=== PATIENT | female | born 1950 | race Caucasian/White ===

== ENCOUNTER → 2017-04-02 | Outpatient (CLI) | payer MEDICARE, BC ==
--- NOTE | 2017-04-02 16:28 | BD ---
EXAMINATION TYPE: MG DEXA axial skeleton. DATE OF EXAM: 04/02/2017 COMPARISON: 05/11/2014 CLINICAL HISTORY: 66 year-old female age related osteoporosis Height: 5 FT 3 1/2 IN Weight: FRAX RISK QUESTIONS: Alcohol (3 or more units per day): NO Family History (Parent hip fracture): NO Glucocorticoids (More than 3mos): NO (Ex: prednisone, prednisolone, methylprednisolone, dexamethasone, and hydrocortisone). History of Fracture in Adulthood: NO Secondary Osteoporosis: 1. Type 1 Diabetes: NO 2. Hyperthyroidism: NO 3. Menopause before 45: PART ST AGE 28 4. Malnutrition: NO 5. Chronic liver disease: NO Rheumatoid Arthritis: NO Current Tobacco Use: NO RISK FACTORS HISTORY OF: Surgery to Spine/Hip(right/left)/Wrist (right/left): CERV FUSION When: 20 YEARS AGO Active: YES Postmenopausal woman: PART AGE 28 MEDICATIONS: Additional Medications: LOSARTIN, CALCIUM,VIT D , LIPITOR, Additional History: EXAM MEASUREMENTS: Bone mineral densitometry was performed using the [employer] System. Bone mineral density as measured about the Lumbar spine is: ----- L1-L4(G/cm2): 1.144 T Score Values are as follows: ----- L2: -1.8 ----- L3: 0.8 ----- L4: 1.2 ----- L1-L4: -0.3 Bone mineral density has: DECREASED -1.5 % since study of: 2014 Bone mineral density about the R hip (g/cm2): 0.784 Bone mineral density about the L hip (g/cm2): 0.773 T Score values are as follows: -----R Neck: -1.8 -----L Neck: -1.9 -----R Total: -1.5 -----L Total: -1.8 Bone mineral density has: DECREASED -7.8 % since study of: 2014 IMPRESSION: Osteopenia (T Score between -2.5 and -1 as noted by T score values There is slightly increased risk of fracture and the patient may be considered for treatment. Re-Screen 2-5 years. NOTE: T-SCORE=SD OF THE YOUNG ADULT MEAN.
== END | disposition home or self-care (01) ==
LOC: RADBDWWP 10:01
PROVIDERS: ATTEND Internal Medicine Geriatric Medicine
DX: M81.0 Age-related osteoporosis without current pathological fracture (principal)
CPT/HCPCS: 77080

== ENCOUNTER → 2017-04-02 | Outpatient (CLI) | payer MEDICARE, BC ==
--- NOTE | 2017-04-03 10:05 | MM ---
Reason for exam: screening (asymptomatic). Last mammogram was performed 1 year and 5 months ago. History: Family history of breast cancer in mother at age 70. Physical Findings: A clinical breast exam by your physician is recommended on an annual basis and results should be correlated with mammographic findings. MG 3D Screening Mammo W/Cad Bilateral CC and MLO view(s) were taken. Prior study comparison: November 13, 2015, bilateral MG 3d screening mammo w/cad. May 11, 2014, bilateral MG screening mammo w CAD. The breast tissue is heterogeneously dense. This may lower the sensitivity of mammography. Finding: There are typically benign diffuse/scattered calcifications in both breasts. No suspicious abnormality. Left internal mammary lymph node noted. No significant changes in finding since November 13, 2015 and May 11, 2014. ASSESSMENT: Benign, BI-RAD 2 RECOMMENDATION: Routine screening mammogram of both breasts in 1 year.
== END | disposition home or self-care (01) ==
LOC: RADMAMWWP 10:04
PROVIDERS: ATTEND Obstetrics & Gynecology
DX: Z12.31 Encounter for screening mammogram for malignant neoplasm of breast (principal)
CPT/HCPCS: 77063; 77067

== ENCOUNTER → 2017-04-02 | Outpatient (CLI) | payer MEDICARE, BC ==
--- NOTE | 2017-04-02 13:51 | XR ---
EXAMINATION TYPE: XR lumbosacral spine min 4V DATE OF EXAM: 04/02/2017 COMPARISON: NONE HISTORY: 66-year-old female with low back pain TECHNIQUE: 5 views FINDINGS: 5 lumbar type vertebral bodies. No pars interarticularis defect. Hypertrophic facet arthropathy mid t o lower lumbar spine. There is moderate to severe degenerative disc disease at L4-L5 and L5-S1 with e ndplate spondylosis, disc height loss, and vacuum phenomenon. Additional endplate spondylosis T10-T11 . Overall alignment is maintained and vertebral body heights are preserved. IMPRESSION: 1. Hypertrophic facet arthropathy mid to lower lumbar spine. No vertebral compression collapse or mal alignment. 2. Moderate to severe degenerative disc disease L4-L5 and L5-S1.
== END | disposition home or self-care (01) ==
LOC: RADXRMAIN 11:08
PROVIDERS: ATTEND Internal Medicine Geriatric Medicine
DX: M51.37 Other intervertebral disc degeneration, lumbosacral region (principal); M46.96 Unspecified inflammatory spondylopathy, lumbar region; M53.86 Other specified dorsopathies, lumbar region
CPT/HCPCS: 72110; 77080

== ENCOUNTER → 2018-05-14 | Outpatient (CLI) | payer MEDICARE, BC ==
--- NOTE | 2018-05-15 11:17 | MM ---
Reason for exam: screening (asymptomatic). Last mammogram was performed 1 year and 1 month ago. History: Patient is postmenopausal. Family history of breast cancer in mother at age 70. Took hormonal contraceptives for 2 years. Physical Findings: A clinical breast exam by your physician is recommended on an annual basis and results should be correlated with mammographic findings. MG 3D Screening Mammo W/Cad Bilateral CC and MLO view(s) were taken. Prior study comparison: April 02, 2017, bilateral MG 3d screening mammo w/cad. November 13, 2015, bilateral MG 3d screening mammo w/cad. The breast tissue is heterogeneously dense. This may lower the sensitivity of mammography. There are benign appearing round circumscribed multiple left masses similar to prior exams. Benign appearing bilateral calcifications. No suspicious abnormality. No significant changes when compared with prior studies. ASSESSMENT: Benign, BI-RAD 2 RECOMMENDATION: Routine screening mammogram of both breasts in 1 year.
== END ==
LOC: RADMAMWWP 13:52
PROVIDERS: ATTEND Obstetrics & Gynecology
DX: Z12.31 Encounter for screening mammogram for malignant neoplasm of breast (principal)
CPT/HCPCS: 77063; 77067

== ENCOUNTER 2018-10-09 09:19 | Emergency (ER) | payer MEDICARE, BC ==
[2018-10-09 09:27] VITALS: TEMP 97.9
[2018-10-09] MEDS ORDERED: DIPH,PERTUS(ACELL)TETVAC-LF 0.5 ML VIAL IM ONE (09:55)
[2018-10-09] MEDS ORDERED: LIDOCAINE 1%-EPI 1:100,000 20 ML VIAL SQ STA (09:58)
--- NOTE | 2018-10-09 10:09 | CT ---
EXAMINATION TYPE: CT brain marcio smith DATE OF EXAM: 10/09/2018 COMPARISON: NONE HISTORY: Fall, Head Injury. Head and neck pain. CT DLP: 1398.1 mGycm. Automated Exposure Control for Dose Reduction was Utilized. TECHNIQUE: CT scan of the head and cervical spine are performed without contrast. FINDINGS: There is a left scalp hematoma the parietal region measuring up to 6 mm in greatest thickn ess. There is no acute intracranial hemorrhage, mass effect, or midline shift identified. The ventri cles and sulci are prominent compatible with age-related volume loss. There a few patchy areas of hy poattenuation in the deep white matter most commonly related to sequela for angiography. The globes a re intact. Minimal mucosal thickening is seen in the ethmoid sinuses and maxillary sinuses. Paranasal sinuses and mastoid air cells are well aerated. Cervical spine is visualized in its entirety from C1 through upper thoracic levels and demonstrates s atisfactory alignment without evidence of acute fracture or dislocation. There is grade 1 anterolist hesis of C7 on T1, likely on a degenerative basis. Facets remain aligned. There is osseous fusion of C5-C6 that may be degenerative or postsurgical. Osseous degenerative cyst are seen of the cervical sp ine versus hemangiomas. Multilevel uncovertebral hypertrophy and facet arthropathy are seen. Degenera tive narrowing of the atlantodental interval. Multilevel mild 2 moderate neural foraminal narrowing i s seen and would be better evaluated with MRI. Prevertebral soft tissue appears within normal limits. The C1-C2 articulation is unremarkable. Lung apices demonstrate mild centrilobular emphysematous c hange. IMPRESSION: 1. Left parietal scalp hematoma measuring up to 6 mm in greatest thickness with no underlying acute i ntracranial hemorrhage or calvarial fracture. 2. No acute fracture or dislocation evident in the cervical spine. 3. Moderate multilevel degenerative disc disease of the cervical spine with osseous fusion of C5-6.
[2018-10-09 10:30] VITALS: RESP 18
[2018-10-09] MEDS ORDERED: SODIUM CHLORIDE 0.9% 1,000 ML IV ONE (10:35)
[2018-10-09] MEDS ORDERED: MORPHINE SULFATE 4 MG/ML SYRINGE IVP PRN (10:36)
[2018-10-09] MEDS ORDERED: ONDANSETRON 4 MG/2 ML VIAL IVP STA (10:36)
--- NOTE | 2018-10-09 10:48 | ED ---
Fall HPI - General Chief Complaint: Fall Stated Complaint: Fall, head injury Time Seen by Provider: 10/09/18 09:29 Source: patient Mode of arrival: wheelchair - History of Present Illness Initial Comments: 5-year-old female with history of HLD, and HTN presenting today for chief c omplaint of fall with head laceration. Patient states just prior to arrival she was walking in her forearm when she tripped over a small raised ledge falling onto her left side hitting her head on a metal door frame. Patient states a piece for scope was removed the cannot find the piece of skin. Patient denied loss of consciousness. Denies any tick coordination therapy but states she takes a baby aspirin daily. Patient denies any nausea vomiting headache. She states she does not have much pain unless the area of laceration is palpated. Patient denies any speech changes numbness tingling of the upper or lower extremities weakness of the arms or legs. Patient has no other complaints. She was brought to emergency department by her . Personal vehicle. Remaining ROS (-) Upon arrival patient appears well, holding pressure with wash clothes over wounds. - Related Data Home Medications Medication Instructions Recorded Confirmed Atorvastatin [Lipitor] 10 mg PO HS 10/09/18 10/09/18 Ganciclovir [Zirgan] 1 applic LEFT EYE QID 10/09/18 10/09/18 Losartan/Hydrochlorothiazide 1 tab PO DAILY 10/09/18 10/09/18 [Losartan-Hctz 100-25 mg Tab] Allergies Allergy/AdvReac Type Severity Reaction Status Date / Time No Known Allergies Allergy Verified 10/09/18 09:47 Review of Systems ROS Statement: Those systems with pertinent positive or pertinent negative responses have been documented in the HPI. ROS Other: All systems not noted in ROS Statement are negative. Past Medical History Past Medical History: Hyperlipidemia, Hypertension History of Any Multi-Drug Resistant Organisms: None Reported Past Surgical History: Section, Hysterectomy, Orthopedic Surgery Additional Past Surgical History / Comment(s): neck surgery Past Psychological History: No Psychological Hx Reported Smoking Status: Never smoker Past Alcohol Use History: Occasional Past Drug Use History: None Reported General Exam - General Exam Comments Initial Comments: General: The patient is awake and alert, no distress Eye: +3 mm pupils are equal, round and reactive to light, extra-ocular movements are intact. No nystagmus. There is normal conjunctiva bilaterally. No signs of icterus. Ears, nose, mouth and throat: There are moist mucous membranes and no oral lesions. Neck: The neck is supple, there is no tenderness or JVD. Cardiovascular: There is a regular rate and rhythm. No murmur, rub or gallop is appreciated. Respiratory: Lungs are clear to auscultation, respirations are non-labored, breath sounds are equal. No wheezes, stridor, rales, or rhonchi. Gastrointestinal: Soft, non-distended, non-tender abdomen without masses or organomegaly noted. There is no rebound or guarding present. Musculoskeletal: Normal ROM, no tenderness. Strength 5/5 of the UE and LE b/l. Sensation intact. Radial pulses equal bilaterally 2+. Neurological: A&O x 3. CN II-XII intact, There are no obvious motor or sensory deficits. Coordination appears grossly intact. Speech is normal. Skin: Skin is warm and dry and no rashes or lesions are noted. Large 8x6 avulses area of skin of the left temporal region, with exposure of skull. Psychiatric: Cooperative, appropriate mood & affect, normal judgment. Limitations: no limitations Course Vital Signs 10/09/18 10/09/18 10/09/18 09:25 10:15 10:25 Temperature 97.9 F Pulse Rate 92 67 70 Respiratory 16 18 18 Rate Blood Pressure 147/91 88/55 143/79 O2 Sat by Pulse 100 98 Oximetry Medical Decision Making - Medical Decision Making 5-year-old presenting for a head injury with laceration. Avulsion of skin on e xamination. Tetanus updated. Area cleansed. New bandage applied. Figure 8 stitch was used to ligate the vessel performed by attending Dr. Braxton and ARGELIA Robison. Bleeding controlled. She he wanted him to be stable. CT of the brain and C-spine revealed no acute intracranial or cervical spine no acute abnormalities. Patient denies injury of the upper or lower extremities. No focal neurological deficits. At this time given the extent of the laceration with no skin available for closure we will transfer patient to [facility] for plastics available for evaluation of wound. I spoke with transferring physician who acceppted and will consults plastics. Pt is agreeable with transfer. - Lab Data Result diagrams: 08/09/19 10:20 Lab Results 10/09/18 Range/Units 10:20 WBC 8.8 (3.8-10.6) k/uL RBC 4.81 (3.80-5.40) m/uL Hgb 14.0 (11.4-16.0) gm/dL Hct 41.7 (34.0-46.0) % MCV 86.8 (80.0-100.0) fL MCH 29.2 (25.0-35.0) pg MCHC 33.6 (31.0-37.0) g/dL RDW 13.4 (11.5-15.5) % Plt Count 321 (150-450) k/uL Neutrophils % 68 % Lymphocytes % 21 % Monocytes % 6 % Eosinophils % 2 % Basophils % 1 % Neutrophils # 6.0 (1.3-7.7) k/uL Lymphocytes # 1.8 (1.0-4.8) k/uL Monocytes # 0.5 (0-1.0) k/uL Eosinophils # 0.2 (0-0.7) k/uL Basophils # 0.1 (0-0.2) k/uL - EKG Data EKG Comments: Ventricular rate 62 bpm, IL interval 172 ms, to administration 142 ms, QT/QTC 454/460 miles seconds. This is normal sinus. There is noted left bundle branch block. No ST elevation or depression. Disposition Clinical Impression: Head injury, Avulsion of scalp, Fall Disposition: OTHER INSTITUTION NOT DEFINED Condition: Stable Is patient prescribed a controlled substance at d/c from ED?: No Referrals: Tony De Los Santos MD [Primary Care Provider] - 1-2 days Time of Disposition: 10:49 - Out of Hospital Transfer - Req. Specs Out of Hospital Transfer - Requested Specifics: Other Emergency Center ([facility]--Dr. More)
[2018-10-09 11:04] LABS: Basophils # (A) 0.1 k/uL (0-0.2); Basophils % (A) 1 %; Eosinophils # (A) 0.2 k/uL (0-0.7); Eosinophils % (A) 2 %; HCT 41.7 % (34.0-46.0); Lymphocytes # (A) 1.8 k/uL (1.0-4.8); Lymphocytes % (A) 21 %; MCH 29.2 pg (25.0-35.0); MCHC 33.6 g/dL (31.0-37.0); MCV 86.8 fL (80.0-100.0); Mean Platelet Volume 7.3; Monocytes # (A) 0.5 k/uL (0-1.0); Monocytes % (A) 6 %; Neutrophils % (A) 68 %; Platelet Count 321 k/uL (150-450); RBC 4.81 m/uL (3.80-5.40); RDW 13.4 % (11.5-15.5); WBC 8.8 k/uL (3.8-10.6)
[2018-10-09 11:19] LABS: ALT 29 U/L (9-52); AST 20 U/L (14-36); African American GFR (CKD) >90 (>60 ml/min/1.73 sqM); Albumin 3.8 g/dL (3.5-5.0); Alkaline Phosphatase 88 U/L (38-126); Anion Gap 9 mmol/L; Blood Urea Nitrogen 21 mg/dL (7-17); Calcium 9.6 mg/dL (8.4-10.2); Carbon Dioxide 24 mmol/L (22-30); Chloride 104 mmol/L (98-107); Glucose 118 mg/dL (74-99); Potassium 3.7 mmol/L (3.5-5.1); Sodium 137 mmol/L (137-145); Total Bilirubin 0.7 mg/dL (0.2-1.3)
[2018-10-09 11:37] VITALS: BP 135/78; PULSE 68
--- NOTE | 2018-10-13 08:54 | CDI ---
Documentation Clarification OP Dear Beena MCCLOUD, PAC Please provide scalp vessel ligation repair complete procedure note. Thank you, Pedro See Wire Frame Maker If you have any questions, please contact Motor Block Mechanic at [phone] [facility]
--- NOTE | 2018-10-27 16:16 | ED ---
Medical Decision Making - Medical Decision Making Left scalp laceration, significant bleeding, skin avulsion, states vessel bleeding is controlled with [id number] stitch - Lab Data Result diagrams: 10/09/18 10:20 10/09/18 10:20 Lab Results 10/09/18 10/09/18 Range/Units 10:20 10:20 WBC 8.8 (3.8-10.6) k/uL RBC 4.81 (3.80-5.40) m/uL Hgb 14.0 (11.4-16.0) gm/dL Hct 41.7 (34.0-46.0) % MCV 86.8 (80.0-100.0) fL MCH 29.2 (25.0-35.0) pg MCHC 33.6 (31.0-37.0) g/dL RDW 13.4 (11.5-15.5) % Plt Count 321 (150-450) k/uL Neutrophils % 68 % Lymphocytes % 21 % Monocytes % 6 % Eosinophils % 2 % Basophils % 1 % Neutrophils # 6.0 (1.3-7.7) k/uL Lymphocytes # 1.8 (1.0-4.8) k/uL Monocytes # 0.5 (0-1.0) k/uL Eosinophils # 0.2 (0-0.7) k/uL Basophils # 0.1 (0-0.2) k/uL Sodium 137 (137-145) mmol/L Potassium 3.7 (3.5-5.1) mmol/L Chloride 104 (98-107) mmol/L Carbon Dioxide 24 (22-30) mmol/L Anion Gap 9 mmol/L BUN 21 H (7-17) mg/dL Creatinine 0.64 (0.52-1.04) mg/dL Est GFR (CKD-EPI)AfAm >90 (>60 ml/min/1.73 sqM) Est GFR (CKD-EPI)NonAf >90 (>60 ml/min/1.73 sqM) Glucose 118 H (74-99) mg/dL Calcium 9.6 (8.4-10.2) mg/dL Total Bilirubin 0.7 (0.2-1.3) mg/dL AST 20 (14-36) U/L ALT 29 (9-52) U/L Alkaline Phosphatase 88 (38-126) U/L Total Protein 6.0 L (6.3-8.2) g/dL Albumin 3.8 (3.5-5.0) g/dL Disposition Clinical Impression: Head injury, Avulsion of scalp, Fall Disposition: OTHER INSTITUTION NOT DEFINED Condition: Stable Is patient prescribed a controlled substance at d/c from ED?: No Referrals: Tony De Los Santos MD [Primary Care Provider] - 1-2 days - Out of Hospital Transfer - Req. Specs Out of Hospital Transfer - Requested Specifics: Other Emergency Center ([facility] det roit) Procedures - Laceration Laceration #1 Consent Obtained: verbal consent Indication: laceration Site: scalp, face Size (cm): 8 (diameter, avulsion) Description: avulsion Depth: simple, single layer (figure 8 to stop bleeding) Anesthetic Used: lidocaine 1%, with epi Anesthesia Technique: local infiltration Pre-repair: wound explored Type of Sutures: vicryl Size of Sutures: 3-0 Patient Tolerated Procedure: well
== END 2018-10-09 11:20 | disposition other institution (70) ==
LOC: EC 09:19
DX: S08.0XXA Avulsion of scalp, initial encounter (principal); E78.5 Hyperlipidemia, unspecified; I10 Essential (primary) hypertension; Z79.899 Other long term (current) drug therapy; Z23 Encounter for immunization; W01.198A Fall on same level from slipping, tripping and stumbling with subsequent striking against other object, initial encounter; Y93.01 Activity, walking, marching and hiking
CPT/HCPCS: 99284; 12004; 96374; 96375; 96361; 90471; 36415; 93005; 80053; 85025; 72125; 70450; 90715; J2270; J2405

== ENCOUNTER → 2018-10-14 | Outpatient (CLI) | payer MEDICARE, BC ==
--- NOTE | 2018-10-14 15:09 | XR ---
EXAMINATION TYPE: XR chest 2V DATE OF EXAM: 10/14/2018 COMPARISON: 07/20/2014 HISTORY: Fall one week ago with subsequent right-sided rib pain TECHNIQUE: Frontal and lateral views of the chest are obtained. FINDINGS: There is no focal air space opacity, pleural effusion, or pneumothorax seen. The cardiac silhouette size is within normal limits. No acute displaced fracture is seen. Mild multilevel degener ative changes of the thoracic spine. IMPRESSION: No acute cardiopulmonary process. No displaced acute right rib fracture is seen. There i s further concern or point tenderness rib series could be performed.
== END | disposition home or self-care (01) ==
LOC: RADXRMAIN 14:41
PROVIDERS: ATTEND Internal Medicine Geriatric Medicine
DX: S20.219A Contusion of unspecified front wall of thorax, initial encounter (principal)
CPT/HCPCS: 71046

== ENCOUNTER → 2019-09-02 | Outpatient (CLI) | payer MEDICARE, BC ==
[2019-09-02 13:20] LABS: HCT 45.5 % (34.0-46.0); HGB 14.4 gm/dL (11.4-16.0); MCH 28.3 pg (25.0-35.0); MCHC 31.7 g/dL (31.0-37.0); MCV 89.3 fL (80.0-100.0); Mean Platelet Volume 7.5; Platelet Count 374 k/uL (150-450); RBC 5.09 m/uL (3.80-5.40); RDW 12.6 % (11.5-15.5); WBC 7.4 k/uL (3.8-10.6)
[2019-09-02 13:27] LABS: African American GFR (CKD) >90 (>60 ml/min/1.73 sqM); Anion Gap 9 mmol/L; Blood Urea Nitrogen 19 mg/dL (7-17); Carbon Dioxide 24 mmol/L (22-30); Chloride 103 mmol/L (98-107); Glucose 94 mg/dL (74-99); Non-African American GFR(CKD) >90 (>60 ml/min/1.73 sqM); Potassium 4.6 mmol/L (3.5-5.1); Sodium 136 mmol/L (137-145)
== END | disposition home or self-care (01) ==
LOC: LABPAT 10:47
PROVIDERS: ATTEND Internal Medicine Interventional Cardiology
DX: Z01.818 Encounter for other preprocedural examination (principal); I10 Essential (primary) hypertension
CPT/HCPCS: 36415; 80051; 82565; 82947; 84520; 85027

== ENCOUNTER 2019-09-10 07:51 | Day surgery (SDC) | payer MEDICARE, BC ==
[2019-09-07 14:17] VITALS: BMI 30.5
[~2019-09-10 07:51] MED LIST: ALPRAZolam 0.25 MG TAB PO PRN; ALPRAZolam 0.5 MG TAB PO PRN; ASPIRIN 325 MG TAB PO ONE; ATORVASTATIN 80 MG TAB PO STA; NITROGLYCERIN SL TABS 0.4 MG TAB SUBLINGUAL PRN; SODIUM CHLORIDE 0.9% 1,000 ML in EMPTY BAG 1 BAG IV ONE
[2019-09-10] MEDS ORDERED: SODIUM CHLORIDE 0.9% 1,000 ML IV ONE (08:15)
[2019-09-10 08:50] VITALS: RESP 16; TEMP 98.3
[2019-09-10] MEDS ORDERED: LIDOCAINE 1% INJ 10MG/ML (20 ML MDV) ONE (08:53)
[2019-09-10] MEDS ORDERED: VERAPAMIL 2.5 MG/ML 2 ML AMP ONE (08:54)
[2019-09-10] MEDS ORDERED: fentaNYL (PF) 50 MCG/ML 2 ML AMP ONE (08:54)
[2019-09-10] MEDS ORDERED: HEPARIN SODIUM 1,000 UN/ML (10ML VL) ONE (08:54)
[2019-09-10] MEDS ORDERED: fentaNYL (PF) 50 MCG/ML 2 ML AMP IV ONE (09:12)
[2019-09-10] MEDS: MIDAZOLAM 2 MG/2 ML VIAL IV ONE ×2 (09:17→09:24)
[2019-09-10] MEDS ORDERED: LIDOCAINE 1% INJ 10MG/ML (20 ML MDV) SQ ONE (09:17)
[2019-09-10] MEDS ORDERED: VERAPAMIL SYRINGE (5 MG/10 ML) IV ONE (09:19)
[2019-09-10] MEDS ORDERED: IOPAMIDOL-370 100ML BTL INJ ONE (09:32)
[2019-09-10] MEDS ORDERED: SODIUM CHLORIDE 0.9% 1,000 ML IV SCH (09:45)
[2019-09-10] MEDS ORDERED: RX INFO: IV CONTRAST WAS GIVEN 1 EACH MISC MISCELLANE PRN (09:45)
--- NOTE | 2019-09-10 13:19 | LTR ---
DATE OF SERVICE: 09/10/2019 RE: NatiGarrete Dear Dr. De Los Santos; I had the pleasure to perform cardiac catheterization on Mrs. Damian at [facility] on September 10, 2019 and a full copy of the procedure note will be forwarded to you. In brief, she was found to have no evidence of obstructive disease with preserved ventricular size and systolic function. Based on those findings, I recommend continue medical therapy with aggressive risk modifications being initiated. Thank you again for allowing me to participate in this patient's personal care. Please feel free to call for any questions. Sincerely yours, MD KAVEH Cantu / LUDIVINAN: [phone] /
--- NOTE | 2019-09-10 13:19 | CC ---
CARDIAC CATHETERIZATION REPORT Mrs. Damian is a 69-year-old female with a known history of hypertension, hyperlipidemia, who has been complaining of dyspnea on exertion, underwent a myocardial perfusion imaging that was reported showing evidence of inducible ischemia. Her EKG showed left bundle branch block. In view of that, recommendation made regarding cardiac catheterization. The procedures, risks, and complications were discussed with the patient who is in full understanding and agreement. PROCEDURE: Patient was brought to labor employment associate in a fasting semi-sedated state after receiving fentanyl and Benadryl and achieving moderate conscious sedated state. Using Xylocaine anesthesia and Seldinger technique, a 6-Luxembourger sheath was introduced in the right radial artery. Selective right and left coronary angiography performed using 5-Luxembourger, 3.5 bend, right and left Jonathan catheter. Multiple views of the coronary artery including hemiaxial views were obtained. Following that, 5-Luxembourger tight pigtail catheter was introduced in the left ventricle and a 30-degree MIRELES view of the left ventricle was obtained. Following that, catheter and sheath were removed. Hemostasis was obtained with deployment of a TR band. There was no immediate complication. Patient was returned to her room in stable condition. FINDINGS: LEFT MAIN: This is a short size vessel, bifurcating into left circumflex, left anterior descending artery. Left main coronary artery has no evidence of high-grade stenosis. LEFT ANTERIOR DESCENDING ARTERY: This is a large-sized vessel, reaching toward the apex with a wraparound apex segment, giving rise to a large diagonal branch proximally. The left anterior descending artery as well as branches have no evidence of obstructive coronary artery disease. LEFT CIRCUMFLEX: This is a nondominant vessel, giving rise to 3 obtuse marginal branch, the second and third one are large in caliber. The left circumflex as well as branches have no evidence of obstructive coronary artery disease. RIGHT CORONARY ARTERY: This is a dominant vessel, bifurcating into PDA and posterolateral segment and branches. The right coronary artery as well as branches have no evidence of obstructive coronary artery disease. LEFT VENTRICULOGRAM: Left ventriculogram is performed in 30-degree MIRELES view revealed normal left ventricular size and systolic function, ejection fraction is 60%. There was no significant mitral regurgitation. HEMODYNAMICS: There was no gradient across the aortic valve. The left ventricular end- diastolic pressure was 12-16 mmHg. CONCLUSION: 1. Normal coronary arteries. 2. Normal left ventricular size and systolic function. RECOMMENDATION: In view of finding anatomy, I recommend continue medical therapy with aggressive risk modifications being initiated. Those findings and recommendation were discussed with the patient and her family who are in full understanding and agreement. Duration of procedure is 20 minutes. KAVEH / LUDIVINAN: [phone] /
[2019-09-10 14:25] VITALS: BP 132/71; PULSE 61
[2019-09-11] MEDS ORDERED: LOSARTAN 50 MG TAB PO SCH (09:00)
[2019-09-11] MEDS ORDERED: hydroCHLOROthiazide 12.5 MG CAP PO SCH (09:00)
[2019-09-11] MEDS ORDERED: ATORVASTATIN 10 MG TAB PO SCH (09:00)
[2019-09-11] MEDS ORDERED: ASPIRIN 81 MG PO SCH (09:00)
== END 2019-09-10 15:47 | disposition home or self-care (01) ==
LOC: CATHCVL 07:51
PROVIDERS: ATTEND Internal Medicine Interventional Cardiology
DX: R94.39 Abnormal result of other cardiovascular function study (principal); I10 Essential (primary) hypertension; E78.5 Hyperlipidemia, unspecified; E78.00 Pure hypercholesterolemia, unspecified; Z79.899 Other long term (current) drug therapy; Z87.891 Personal history of nicotine dependence; Z82.49 Family history of ischemic heart disease and other diseases of the circulatory system
CPT/HCPCS: 93458; C1769; C1894; J2250; J2001; J3010; J1644; Q9967

== ENCOUNTER → 2020-03-20 | Outpatient (CLI) | payer MEDICARE, BC ==
--- NOTE | 2020-03-20 11:47 | BD ---
EXAMINATION TYPE: Axial Bone Density DATE OF EXAM: 03/20/2020 COMPARISON: 04/02/2017 CLINICAL HISTORY: 69-year-old female postmenopausal screening Height: 5 FT 4 IN Weight: 178 FRAX RISK QUESTIONS: Alcohol (3 or more units per day): NO Family History (Parent hip fracture): NO Glucocorticoids (More than 3mos): NO (Ex: prednisone, prednisolone, methylprednisolone, dexamethasone, and hydrocortisone). History of Fracture in Adulthood: NO Secondary Osteoporosis: 1. Type 1 Diabetes: NO 2. Hyperthyroidism: NO 3. Menopause before 45: PART HYST AGE 28 NO SYMPTOMS EVER 4. Malnutrition: NO 5. Chronic liver disease: NO Rheumatoid Arthritis: NO Current Tobacco Use: NO RISK FACTORS HISTORY OF: Surgery to Spine/Hip(right/left)/Wrist (right/left): CERV FUSION , RT HIP REPLACEMENT When: OVER 20 YEARS AGO/ HIP 2020 Family History of Osteoporosis: NO Active: YES Diet low in dairy products/other sources of calcium: NO Postmenopausal woman: PART AGE 28 NO SYMPTOMS OF MENOPAUSE Take estrogen and/or progesterone medications: NONE Lost more than 2 inches in height since high school: NO MEDICATIONS: Additional Medications: OLMESARTAN, ATORVASTATIN, ECOTRIN, VIT D2 Additional History: EXAM MEASUREMENTS: Bone mineral densitometry was performed using the [employer] System. Bone mineral density as measured about the Lumbar spine is: ----- L1-L4(G/cm2): 1.137 T Score Values are as follows: ----- L2: -2.0 ----- L3: 0.6 ----- L4: 1.0 ----- L1-L4: -0.4 Bone mineral density has: DECREASED -1.3 % since study of: 2017 Bone mineral density about the L hip (g/cm2): 0.727 T Score values are as follows: -----L Neck: -2.2 -----L Total: -2.3 Bone mineral density has: DECREASED -7.8 % since study of: 2017 IMPRESSION: Osteopenia (T Score between -2.5 and -1). There is slightly increased risk of fracture and the patient may be considered for treatment. Re-Screen 2-5 years. NOTE: T-SCORE=SD OF THE YOUNG ADULT MEAN.
--- NOTE | 2020-03-21 14:38 | MM ---
Reason for exam: screening (asymptomatic). Last mammogram was performed 1 year and 10 months ago. History: Patient is postmenopausal. Family history of breast cancer in mother at age 70. Took hormonal contraceptives for 2 years. Physical Findings: A clinical breast exam by your physician is recommended on an annual basis and results should be correlated with mammographic findings. MG 3D Screening Mammo W/Cad Bilateral CC and MLO view(s) were taken. Prior study comparison: May 14, 2018, bilateral MG 3d screening mammo w/cad. April 02, 2017, bilateral MG 3d screening mammo w/cad. The breast tissue is heterogeneously dense. This may lower the sensitivity of mammography. There is chronic nodularity in the left breast. No significant changes when compared with prior studies. ASSESSMENT: Benign, BI-RAD 2 RECOMMENDATION: Routine screening mammogram of both breasts in 1 year.
== END | disposition home or self-care (01) ==
LOC: RADMAMWWP 07:57
PROVIDERS: ATTEND Internal Medicine Geriatric Medicine
DX: Z12.31 Encounter for screening mammogram for malignant neoplasm of breast (principal); M85.80 Other specified disorders of bone density and structure, unspecified site; M81.0 Age-related osteoporosis without current pathological fracture
CPT/HCPCS: 77063; 77067; 77080

== ENCOUNTER → 2021-06-26 | Outpatient (CLI) | payer MEDICARE, BC ==
--- NOTE | 2021-06-27 12:18 | MM ---
Reason for exam: screening (asymptomatic). Last mammogram was performed 1 year and 3 months ago. History: Patient is postmenopausal. Family history of breast cancer in mother at age 70. Took hormonal contraceptives for 2 years. Physical Findings: A clinical breast exam by your physician is recommended on an annual basis and results should be correlated with mammographic findings. MG 3D Screening Mammo W/Cad Bilateral CC and MLO view(s) were taken. Prior study comparison: March 20, 2020, bilateral MG 3d screening mammo w/cad. May 14, 2018, bilateral MG 3d screening mammo w/cad. The breast tissue is heterogeneously dense. This may lower the sensitivity of mammography. Finding: There are typically benign vascular, dystrophic, round, linear calcifications. There is a chronic nodularity in the left breast. There is no discrete abnormality. ASSESSMENT: Benign, BI-RAD 2 RECOMMENDATION: Routine screening mammogram of both breasts in 1 year.
== END | disposition home or self-care (01) ==
LOC: RADMAMWWP 15:18
PROVIDERS: ATTEND Internal Medicine Geriatric Medicine
DX: Z12.31 Encounter for screening mammogram for malignant neoplasm of breast (principal); Z78.0 Asymptomatic menopausal state; Z80.3 Family history of malignant neoplasm of breast
CPT/HCPCS: 77063; 77067

== ENCOUNTER → 2021-10-29 | Outpatient (CLI) | payer MEDICARE, BC ==
[2021-10-29 13:26] LABS: African American GFR (CKD) >90 (>60 ml/min/1.73 sqM); Blood Urea Nitrogen 19 mg/dL (7-17); Non-African American GFR(CKD) 84 (>60 ml/min/1.73 sqM)
--- NOTE | 2021-10-29 15:06 | CT ---
EXAMINATION TYPE: CT angio chest DATE OF EXAM: 10/29/2021 COMPARISON: None HISTORY: Thoracic Aortic Aneurysm CT DLP: 675 mGycm CONTRAST: CTA thoracic aorta with 3-D reconstruction is performed and without and with IV Contrast, patient inj ected with 100 mL of Isovue 370. Contrast CTA of the thoracic aorta was performed from the lung apex through the upper abdomen. 3D re construction imaging obtained at a separate workstation. CT Chest: THORACIC AORTA: Ascending thoracic aortic aneurysm measuring 4.2 cm. The remainder of the thoracic ao rta is of normal caliber. Mild atheromatous changes seen. There is no evidence for dissection or per iaortic collection. LUNGS: The lungs are clear and free of infiltrate or atelectasis. No pulmonary nodule or mass is det ected. No pleural effusion or CT evidence of interstitial lung disease. MEDIASTINUM: No evidence for mediastinal hematoma. The heart is not enlarged. No evidence for med iastinal mass or adenopathy. HILAR STRUCTURES: No evidence for mass. No hilar adenopathy is appreciated. OTHER: No significant abnormality. IMPRESSION- Ascending thoracic aortic aneurysm as noted.
== END | disposition home or self-care (01) ==
LOC: RADCTMAIN 12:32
PROVIDERS: ATTEND Internal Medicine Interventional Cardiology
DX: I71.2 Thoracic aortic aneurysm, without rupture (principal)
CPT/HCPCS: 82565; 84520; 71275; 36415; Q9967

== ENCOUNTER → 2021-11-20 | Outpatient (CLI) | payer MEDICARE, BC ==
--- NOTE | 2021-11-20 08:52 | US ---
EXAMINATION TYPE: US duplex aorta DATE OF EXAM: 11/20/2021 COMPARISON: CT 10/29/2021 CLINICAL HISTORY: I71.[address] showed thoracic AAA, HTN controlled with meds TECHNIQUE: Multiple sonographic images of the abdominal aorta are obtained. FINDINGS: EXAM MEASUREMENTS: Abdominal Aorta: Proximal: 2.4 x 1.7 cm Mid: 1.7 x 1.7 cm Distal: 1.4 x 1.3 cm Bifurcation: Right- 0.9 x 1.0 cm Left- 0.9 x 1.2 cm RN PRACTITIONER NOTES: No AAA visualized at time of scan IMPRESSION: No evidence of aortic aneurysm.
== END | disposition home or self-care (01) ==
LOC: RADUSWWP 08:17
PROVIDERS: ATTEND Internal Medicine Geriatric Medicine
DX: I71.4 Abdominal aortic aneurysm, without rupture (principal)
CPT/HCPCS: 93979

== ENCOUNTER → 2022-11-20 | Outpatient (CLI) | payer MEDICARE, BC ==
--- NOTE | 2022-11-20 19:17 | BD ---
EXAMINATION TYPE: Axial Bone Density DATE OF EXAM: 11/20/2022 CLINICAL HISTORY: 72 years old Female. ICD-10 CODE: M81.0 AGE-RELATED OSTE Height: 5 ft 4 in Weight: 184 FRAX RISK QUESTIONS: Alcohol (3 or more units per day): no Family History (Parent hip fracture): no Glucocorticoids (More than 3mos): no (Ex: prednisone, prednisolone, methylprednisolone, dexamethasone, and hydrocortisone). History of Fracture in Adulthood: no Secondary Osteoporosis: 1. Type 1 Diabetes: no 2. Hyperthyroidism: no 3. Menopause before 45: no 4. Malnutrition: no 5. Chronic liver disease: no Rheumatoid Arthritis: no Current Tobacco Use: no RISK FACTORS HISTORY OF: Surgery to Spine/Hip(right/left)/Wrist (right/left): right hip replacement When: 2019 Family History of Osteoporosis: no Active: yes Diet low in dairy products/other sources of calcium: no Postmenopausal woman: yes Take estrogen and/or progesterone medications: no Lost more than 2 inches in height since high school: no Frequent falls: no Poor Health: good Hyperparathyroidism: no Adrenal Insufficiency: no MEDICATIONS: Osteoporosis Medications: alondrenate Which medication: How Long: sev years Additional Medications: olmesartan, Atorvastatin, Additional History: EXAM MEASUREMENTS: Bone mineral densitometry was performed using the Attensity System. Bone mineral density as measured about the Lumbar spine is: ----- L1-L4(G/cm2): 1.355 T Score Values are as follows: ----- L1: -0.9 ----- L2: -0.9 ----- L3: 2.8 ----- L4: 3.6 ----- L1-L4: 1.5 Z Score Values are as follows: ----- L1: 0.2 ----- L2: 0.2 ----- L3: 4.0 ----- L4: 4.7 ----- L1-L4: 2.6 Bone mineral density has: increased 19.2 % since study of: 2020 Bone mineral density about the L hip (g/cm2): 0.777 T Score values are as follows: -----L Neck: -1.9 -----L Total: -1.7 Z Score values are as follows: -----L Neck: -0.4 -----L Total: -0.5 Bone mineral density has: increased 9.7 % since study of: 2020 FRAX%s: The graph provided illustrates a 11.9 % chance for a major osteoporotic fx and a 2.7 % chance for the hips probability for fx in 10 years time. IMPRESSION: Osteopenia (T Score between -2.5 and -1). There is slightly increased risk of fracture and the patient may be considered for treatment. Re-Screen 2-5 years. NOTE: T-SCORE=SD OF THE YOUNG ADULT MEAN.
--- NOTE | 2022-11-21 08:30 | MM ---
Reason for Exam: Screening (asymptomatic). Last mammogram was performed 1 year(s) and 5 month(s) ago. Patient History: Menarche at age 11. First Full-Term at age 19. Hysterectomy at age 28. Postmenopausal. Patient used Hormonal Contraceptives for 2 years. Mother had breast cancer, age 70. Risk Values: Thania 5 year model risk: 3.4%. NCI Lifetime model risk: 7.7%. Prior Study Comparison: 05/14/2018 Bilateral Screening Mammogram, [facility]. 03/20/2020 Bilateral Screening Mammogram, [facility]. 06/26/2021 Bilateral Screening Mammogram, [facility]. Tissue Density: The breast tissue is heterogeneously dense. This may lower the sensitivity of mammography. Findings: Analyzed By CAD. Chronic nodularity left breast. There are benign calcifications bilaterally. Overall Assessment: Benign, BI-RAD 2 Management: Screening Mammogram of both breasts in 1 year. . Patient should continue monthly self-breast exams. A clinical breast exam by your physician is recommended on an annual basis. This exam should not preclude additional follow-up of suspicious palpable abnormalities. Note on Thania scores and lifetime risk: 1. A Thania score greater than 3% is considered moderate risk. If this is the case, consider specialist referral to assess eligibility for a risk reducing agent. 2. If overall lifetime risk for the development of breast cancer is 20% or higher, the patient may qualify for future screening with alternating mammogram and breast MRI. Electronically signed and approved by: Tony Ramirez M.D. Radiologis
== END | disposition home or self-care (01) ==
LOC: RADMAMWWP 08:22
PROVIDERS: ATTEND Internal Medicine Geriatric Medicine
DX: Z12.31 Encounter for screening mammogram for malignant neoplasm of breast (principal); M81.0 Age-related osteoporosis without current pathological fracture; Z78.0 Asymptomatic menopausal state; Z80.3 Family history of malignant neoplasm of breast
CPT/HCPCS: 77063; 77067; 77080

== ENCOUNTER → 2023-09-05 | Outpatient (CLI) | payer MEDICARE, BC ==
[2023-09-05 09:54] LABS: African American GFR (CKD) 65 (>60 ml/min/1.73 sqM); Blood Urea Nitrogen 25 mg/dL (7-17); Non-African American GFR(CKD) 57 (>60 ml/min/1.73 sqM)
--- NOTE | 2023-09-05 17:46 | CT ---
EXAMINATION TYPE: CT angio chest CT DLP: 591.5 mGycm, Automated exposure control for dose reduction was used. DATE OF EXAM: 09/05/2023 10:29 AM COMPARISON: 10/29/2021 CLINICAL INDICATION:Female, 73 years old with history of I71.20 THORACIC AORTIC ANEURYSM, WITHOUT RUP TURE,; Thoracic aneurysm. Priors in PACS TECHNIQUE/CONTRAST: CTA scan of the thorax is performed with IV Contrast, patient injected with 100ml mL of Isovue 370, M IP images are created and reviewed these are created on a separate workstation.. FINDINGS: Lungs/Pleura: No evidence of focal consolidation, pleural effusion or pneumothorax. Calcified granulo ma middle lobe Airway: Large airways are patent. Heart: Heart is within normal limits for size. Vasculature: Ascending thoracic aorta ectasia measuring up to 42 mm. No evidence for intramural hemat jamie on noncontrast imaging. No evidence of intimal flap to suggest dissection. No aneurysm identified . Scattered atherosclerotic disease. Mediastinum: No gross evidence of adenopathy. Musculoskeletal: Mild degenerative disc disease changes are present throughout the thoracolumbar spin e. Soft Tissues/lymph nodes: Unremarkable. Lower neck: No significant findings. Upper Abdomen: No significant findings. IMPRESSION: Similar ascending thoracic aorta ectasia up to 42 mm. No evidence for dissection, aneurysmal dilation or pulmonary embolus.
== END | disposition home or self-care (01) ==
LOC: RADCTMAIN 09:20
PROVIDERS: ATTEND Internal Medicine Interventional Cardiology
DX: I71.20 Thoracic aortic aneurysm, without rupture, unspecified (principal)
CPT/HCPCS: 82565; 84520; 71275; 36415; Q9967

== ENCOUNTER → 2024-02-23 | Outpatient (CLI) | payer MEDICARE, BC ==
--- NOTE | 2024-02-26 07:45 | MM ---
Reason for Exam: Screening (asymptomatic). Last mammogram was performed 1 year(s) and 3 month(s) ago. Patient History: Menarche at age 11. First Full-Term at age 19. Hysterectomy at age 28. Postmenopausal. Patient used Hormonal Contraceptives for 2 years. Mother had breast cancer, age 70. Risk Values: Thania 5 year model risk: 3.4%. NCI Lifetime model risk: 7.2%. Prior Study Comparison: 03/20/2020 Bilateral Screening Mammogram, [facility]. 06/26/2021 Bilateral Screening Mammogram, [facility]. 11/20/2022 Bilateral MG 3D screening mammo w/cad, [facility]. Tissue Density: The breasts are heterogeneously dense, which may obscure small masses. Findings: Analyzed By CAD. There is no suspicious group of microcalcifications or new suspicious mass in either breast. Benign calcifications. Stable chronic nodularity left breast. Overall Assessment: Benign, BI-RAD 2 Management: Screening Mammogram of both breasts in 1 year. . Patient should continue monthly self-breast exams. A clinical breast exam by your physician is recommended on an annual basis. This exam should not preclude additional follow-up of suspicious palpable abnormalities. Note on Thania scores and lifetime risk: 1. A Thania score greater than 3% is considered moderate risk. If this is the case, consider specialist referral to assess eligibility for a risk reducing agent. 2. If overall lifetime risk for the development of breast cancer is 20% or higher, the patient may qualify for future screening with alternating mammogram and breast MRI. [facility], , 02/26/2024 7:42 AM. Electronically signed and approved by: Tony Ramirez M.D. Radiologis
== END | disposition home or self-care (01) ==
LOC: RADMAMWWP 09:21
PROVIDERS: ATTEND Internal Medicine Geriatric Medicine
DX: Z12.31 Encounter for screening mammogram for malignant neoplasm of breast (principal); Z78.0 Asymptomatic menopausal state; Z80.3 Family history of malignant neoplasm of breast; R92.333 Mammographic heterogeneous density, bilateral breasts
CPT/HCPCS: 77063; 77067

== ENCOUNTER → 2024-10-01 | Outpatient (CLI) | payer MEDICARE, OTHER ==
[2024-10-01 08:31] LABS: African American GFR (CKD) 77 (>60 ml/min/1.73 sqM); Blood Urea Nitrogen 40 mg/dL (7-17); Non-African American GFR(CKD) 66 (>60 ml/min/1.73 sqM)
--- NOTE | 2024-10-01 11:34 | CT ---
EXAMINATION TYPE: CT angio chest DATE OF EXAM: 10/01/2024 COMPARISON: 09/05/2023 CLINICAL INDICATION: Female, 74 years old with history of I71.20 ANEURYSM; PHH, Thoracic aortic aneur ysm w/o rupture. TECHNIQUE: CTA scan of the thorax is performed with IV Contrast, patient injected with 100 ml mL of Isovue 370, pulmonary embolism protocol. MIP images are created and reviewed. CT DLP: 593.[address] CTDI: mGy Automated exposure control for dose reduction was used. FINDINGS: LUNGS: The lungs are grossly clear, there is no concerning parenchymal mass or nodule identified. T here is no pleural effusion or pneumothorax seen. The tracheobronchial tree is patent. Mild emphysem atous changes. Groundglass changes involving the lung bases most typical of atelectasis. Calcified gr anuloma right middle lobe. MEDIASTINUM: There is satisfactory enhancement of the pulmonary artery and its branches, there is no CT evidence for pulmonary embolism. There are no greater than 1 cm hilar or mediastinal lymph nodes. Mild cardiomegaly. Coronary artery calcifications. Mild cardiomegaly. Thoracic aorta. Stable appearing aneurysmal dilation of the ascending aorta measur ing 4.2 cm. OTHER: Small hiatal hernia. Reduced attenuation of liver can be associated with hepatic steatosis. M ultilevel hypertrophic and degenerative changes of the spine. Bilateral shoulder arthropathy. There i s a now a left lobe hepatic lesion which is indeterminate measuring 1.4 cm. Reference image 124, seri es 6. IMPRESSION: 1. Stable ascending thoracic aortic aneurysm measuring 4.2 cm. 2. Indeterminate left hepatic lobe lesion. Recommend ultrasound of the liver [facility], , 10/01/2024 11:31 AM
== END | disposition home or self-care (01) ==
LOC: RADCTMAIN 07:42
PROVIDERS: ATTEND Internal Medicine Interventional Cardiology
DX: I71.21 Aneurysm of the ascending aorta, without rupture (principal); I71.20 Thoracic aortic aneurysm, without rupture, unspecified
CPT/HCPCS: 82565; 84520; 71275; 36415; Q9967